=== PATIENT | female | born 1960 | race Caucasian/White ===

== ENCOUNTER → 2020-10-25 13:55 | Outpatient (CLI) | payer OTHER, SELFPAY ==
--- NOTE | ~2020-10-25 | XR_ITS ---
XR knee RT 3V DATE: 10/25/2020 14:10 INDICATION: Right knee pain TECHNIQUE: [place] and standing AP and lateral views COMPARISON: None FINDINGS: No fracture or dislocation or joint effusion. No periosteal reaction or bone destruction. N o radiopaque intra-articular loose body or chondrocalcinosis. Joint spaces are well preserved. IMPRESSION: Negative Reviewed, dictated and finalized at location A. IMPRESSION: Negative
== END ==
PROVIDERS: PCP Internal Medicine; Visit Provider Physician Assistant
DX: M25.561 Pain in right knee (principal)
CPT/HCPCS: 73562

== ENCOUNTER → 2021-07-01 15:09 | Outpatient (CLI) | payer OTHER, SELFPAY ==
--- NOTE | ~2021-07-01 | XR_ITS ---
XR elbow RT min 3V DATE: 07/01/2021 15:31 INDICATION: Right arm pain TECHNIQUE: 4 views COMPARISON: None FINDINGS: No fracture or dislocation or joint effusion. No periosteal reaction or bone destruction. IMPRESSION: No significant abnormality Reviewed, dictated and finalized at location A. IMPRESSION: No significant abnormality
--- NOTE | ~2021-07-01 | XR_ITS ---
XR shoulder RT min 2V 07/01/2021 15:31 INDICATION: Right shoulder pain PROCEDURE: 4 views right shoulder COMPARISON: 07/11/2007 FINDINGS: Fracture, dislocation or subluxation is not identified. The soft tissues appear within norm al limits. No foreign bodies are identified. IMPRESSION: 1: NO ACUTE BONE OR JOINT ABNORMALITY IDENTIFIED. Reviewed, dictated and finalized at location B.
== END ==
PROVIDERS: Visit Provider Internal Medicine
DX: M79.601 Pain in right arm (principal)
CPT/HCPCS: 73030; 73080

== ENCOUNTER 2021-09-17 10:16 | Emergency (ER) | payer OTHER, SELFPAY ==
--- NOTE | ~2021-09-17 | XR_ITS ---
XR chest 1V portable 09/17/2021 13:15 Indication: Cough. Covid positive. Procedure: AP portable chest Comparison: 05/11/2012 Findings: Heart size normal. Shallow inspiration with crowding of the pulmonary vasculature. No focal air space disease, pulmonary edema, pleural effusion or suspected pneumothorax. Impression: 1: No acute cardiopulmonary disease. Reviewed, dictated and finalized at location A. Impression: 1: No acute cardiopulmonary disease.
[2021-09-17 11:04] VITALS: BP 125/77; PULSE 80; RESP 16; TEMP 36.3; O2SAT 96
[2021-09-17 11:54] LABS: Add Urine Microscopic? YES; Appearance Urine Clear (Clear); Bilirubin Urine Negative (Negative); Blood Urine 1+ (Negative); Color Urine Yellow (Yellow); Glucose Urine UA Negative (Negative); Ketones Urine Negative (Negative); Leukocyte Esterase Ur Negative LEU/UL (Negative); Nitrate Urine Negative (Negative); Protein Urine Trace mg/dL (Negative); Urobilinogen Urine 0.2 mg/dL (<2.0)
[2021-09-17 11:59] LABS: Bacteria Urine Trace /hpf; Mucus Urine Rare /lpf; RBC Urine 0-2 /hpf (0-2); Squamous Epithelial Cell Urine Many /hpf (Few); WBC Urine 0-3 /hpf
[2021-09-17 12:24] LABS: Influenza A QL RT-PCR Negative (Negative); Influenza B QL RT-PCR Negative (Negative); SARS-CoV-2 RNA PCR Positive
--- NOTE | 2021-09-17 12:33 | ED.URI ---
HPI - URI/Sore Throat General Chief Complaint: Upper Respiratory Infection Stated Complaint: ? covid Time Seen by Provider: 09/17/21 11:27 History of Present Illness HPI Narrative: Patient is a 61-year-old female who presents the ED with report of flulike symptoms. Patient reports she was working outside all afternoon on Wednesday and began having sweats after coming inside. She states she just could not cool down and thought she may have had heat exhaustion. Since then, she has developed headache, intermittent fevers (up to 101F at home), congestion, cough occasionally productive, nausea, dizziness. She has been taking Tylenol and Naproxen at home for her fevers and pain. She took an at home COVID test which was positive, however she did not believe this as she thought she had heat exhaustion. She reports she had difficulty sleeping last night due to the cough which prompted her to come to the ED today. She last took Tylenol very early this morning and naproxen around 10 AM. She reported having difficulty urinating yesterday, but denied any difficulty today. No dysuria or hematuria. Patient denies any chest pain, difficulty breathing, vomiting, abdominal pain, diarrhea, sore throat, vision changes, myalgias. Patient is vaccinated for COVID and flu. Related Data Home Medications Medication Instructions Recorded Confirmed cetirizine 5 mg tablet 5 mg PO DAILY PRN 01/30/20 07/01/21 estradiol 0.5 mg tablet 0.5 mg PO DAILY 01/30/20 07/01/21 gabapentin 300 mg capsule 900 mg PO TID 01/30/20 07/01/21 aspirin 81 mg tablet,delayed 81 mg PO .qod 07/01/21 07/01/21 release (Adult Low Dose Aspirin) Allergies Allergy/AdvReac Type Severity Reaction Status Date / Time bacitracin Allergy Unknown Other Verified 09/17/21 11:08 erythromycin base Allergy Unknown Rash Verified 09/17/21 11:08 neomycin Allergy Unknown Rash Verified 09/17/21 11:08 Penicillins Allergy Unknown Rash Verified 09/17/21 11:08 polymyxin B Allergy Unknown Rash Verified 09/17/21 11:08 Review of Systems Review of Systems: CONSTITUTIONAL: Reports fever, chills, and sweats. EYES: Denies visual changes. ENT: Reports congestion. Denies sore throat. CARDIOVASCULAR: Denies chest pain. RESPIRATORY: Reports cough. Denies dyspnea. GASTROINTESTINAL: Reports nausea. Denies abdominal pain, vomiting, or diarrhea. GENITOURINARY: Reports difficulty urinating. Denies dysuria or hematuria. MUSCULOSKELETAL: Denies myalgia. NEUROLOGIC: Reports headache, dizziness. Denies numbness, or weakness. All systems reviewed & are unremarkable except as noted in HPI and below PMFSH Past Medical History Medical History (Updated 09/17/21 @ 14:41 by Veronica Wyatt PA-C) Depression Essential (primary) hypertension Gastro-esophageal reflux disease without esophagitis Hypothyroidism Polyneuropathy, unspecified Pure hypercholesterolemia Spinal stenosis, cervical region Surgical History Surgical History (Updated 09/17/21 @ 12:47 by Veronica Wyatt PA-C) History of History of cervical spinal surgery Family History Family History Father Family history of lung cancer Patient's father is in good health Patient's father is Mother Patient's mother is Social History Social History Smoking status: Never smoker Second hand tobacco smoke exposure: No Alcohol intake: current Exam Narrative: GENERAL: Well appearing, well-nourished, non-toxic, in no acute distress. HEAD: Normocephalic, atraumatic. NECK: Supple. No adenopathy, no masses. RESPIRATORY: Airway patent, respirations nonlabored. Clear to auscultation bilaterally, no rales, rhonchi, wheezing. CARDIOVASCULAR: Regular rate and rhythm without murmurs, rubs, or gallops. ABDOMINAL: Soft, nontender, nondistended, no hepatosplenomegaly. Normoactive BS. MUSCULOSKELETAL: Moves all
[2021-09-17] MEDS: ONDANSETRON INJ 4 MG/2 ML VIAL IV PUSH (12:51)
[2021-09-17] MEDS: SODIUM CHLORIDE 0.9% IV 1,000 ML 999 ML IV CONT (12:51)
[2021-09-17 13:05] LABS: Basophils Percent Auto 0.6 % (0.2-1.2); Eosinophils Percent Auto 0.6 % (0-4.4); Hematocrit 38.7 % (37.0-47.0); Hemoglobin 12.5 g/dL (12.0-15.0); Immature Granulocyte Absolute 0.02 K/mm3 (0.00-0.031); Immature Granulocyte Percent A 0.6 % (0-0.5); Immature Platelet Fraction Pct 7.9 % (0.9-11.2); Lymphocytes Absolute Auto 0.77 K/mm3 (0.9-3.2); Lymphocytes Percent Auto 21.4 % (18.3-44.2); Mean Corpuscular HGB Conc 32.3 g/dl (32-36); Mean Corpuscular Hemoglobin 29.2 pg (26-34); Mean Corpuscular Volume 90.4 fl (80-100); Mean Platelet Volume 11.4 fl (7.4-10.4); Monocytes Absolute Auto 0.6 K/mm3 (0.1-0.6); Monocytes Percent Auto 16.2 % (2.6-8.5); Neutrophils Absolute Auto 2.2 K/mm3 (1.3-6.7); Neutrophils Percent Auto 60.6 % (45.5-73.1); Platelet Count Result 125 k/mm3 (150-375); Red Blood Count 4.28 M/mm3 (4.2-5.4); Red Cell Distribution Width 13.8 % (11.5-14.5); White Blood Count 3.6 K/mm3 (4.5-10.0)
[2021-09-17 14:29] LABS: Alanine Aminotransferase 17 U/L (6-35); Albumin Level 4.1 g/dL (3.5-5.1); Alkaline Phosphatase 98 U/L (38-126); Anion Gap 6 mmol/L (8-16); Aspartate Amino Transferase 31 U/L (14-36); Bilirubin,Total 0.4 mg/dL (0.2-1.3); Blood Urea Nitrogen 10 mg/dL (7-17); Calcium 8.1 mg/dL (8.4-10.2); Carbon Dioxide 26 mmol/L (22-30); Chloride 108 mmol/L (98-107); Estimated CRCL calculation 66 ml/min; Estimated Glomerular Filt Rate > 60; Glucose 94 mg/dL (65-110); Sodium 140 mmol/L (137-145)
== END 2021-09-17 15:01 | disposition home or self-care (01) ==
PROVIDERS: Physician Assistant; Emergency Provider Emergency Medicine; PCP Internal Medicine
DX: U07.1 COVID-19 (principal); I10 Essential (primary) hypertension; K21.9 Gastro-esophageal reflux disease without esophagitis; E03.9 Hypothyroidism, unspecified; G62.9 Polyneuropathy, unspecified; E78.00 Pure hypercholesterolemia, unspecified; F32.A Depression, unspecified
CPT/HCPCS: 36415; 71045; 80053; 81001; 85025; 85055; 87086; 87088; 87502; 96361; 96365; 96375; 99284; C9803; J0131; J2405; J7030; U0003; U0005

== ENCOUNTER 2021-10-28 18:34 | Emergency (ER) | payer OTHER, SELFPAY ==
--- NOTE | ~2021-10-28 | CT_ITS ---
EXAMINATION: CT abdomen pelvis w con DATE: 10/28/2021 21:30 INDICATION: Right upper quadrant pain. Nausea. History of ulcers. TECHNIQUE: Computed tomography (CT) of the abdomen and pelvis was performed without intravenous contr ast. The dose-length product was 1122.45 mGy-cm. Automated exposure control and iterative reconstruct ion technique were employed. COMPARISON: None. FINDINGS: Heart size is normal. No significant pleural or pericardial effusion. Calcified granuloma l eft lower lobe. There is dependent atelectasis. The liver, spleen, pancreas, adrenal glands and kidne ys are unremarkable. Gallbladder wall appears mildly prominent with possible subtle pericholecystic f luid. No definite gallstones identified. Nonobstructive bowel gas pattern. Normal appendix. Bladder i s unremarkable. No abnormal pelvic masses or fluid collections. Colonic diverticulosis without eviden ce for diverticulitis. Small fat-containing umbilical hernia. There is atherosclerosis of the aorta w ithout aneurysm. No lymphadenopathy. Mild lumbar spondylosis. IMPRESSION: 1. Mild gallbladder wall thickening with possible pericholecystic fluid. Consider cholecystitis in th e appropriate clinical setting. Correlate clinically. Reviewed, dictated and finalized at location A. IMPRESSION: 1. Mild gallbladder wall thickening with possible pericholecystic fluid. Consid er cholecystitis in the appropriate clinical setting. Correlate clinically.
[2021-10-28 18:50] VITALS: BP 133/65; PULSE 71; RESP 16; TEMP 36.6; O2SAT 99
[2021-10-28 20:19] VITALS: BP 132/57; PULSE 64; RESP 16; O2SAT 99
--- NOTE | 2021-10-28 20:25 | ED.ABDPAIN ---
HPI - Abdominal Pain General Chief Complaint: Abdominal Pain Stated Complaint: abd pain Time Seen by Provider: 10/28/21 20:16 Source: patient Mode of arrival: ambulatory Limitations: no limitations History of Present Illness HPI narrative: This is a 61 year old female who presents for evaluation of right upper abdominal pain starting yesterday. She reports she had pain for several hours last night. She was able to get pain to resolve late last night with naproxen. She reports her pain returned to day after eating. Her pain has gradually worsened. She describes her pain has cramping with nausea. She states she had similar pain several months ago after eating tacos but she did not seek medical treatment. She took omeprazole twice today and 5 tums without relief. She rates her pain as 8/10. MD elicited complaint: abdominal pain Location: RUQ Severity: severe Quality: cramping Radiation: none Migration to: no migration Exacerbating factors: eating Associated symptoms: nausea Treatments prior to arrival: NSAIDs and antacids Related Data Home Medications Medication Instructions Recorded Confirmed cetirizine 5 mg tablet 5 mg PO DAILY PRN 01/30/20 07/01/21 estradiol 0.5 mg tablet 0.5 mg PO DAILY 01/30/20 07/01/21 gabapentin 300 mg capsule 900 mg PO TID 01/30/20 07/01/21 aspirin 81 mg tablet,delayed 81 mg PO .qod 07/01/21 07/01/21 release (Adult Low Dose Aspirin) Allergies Allergy/AdvReac Type Severity Reaction Status Date / Time bacitracin Allergy Unknown Other Verified 09/17/21 11:08 erythromycin base Allergy Unknown Rash Verified 09/17/21 11:08 neomycin Allergy Unknown Rash Verified 09/17/21 11:08 Penicillins Allergy Unknown Rash Verified 09/17/21 11:08 polymyxin B Allergy Unknown Rash Verified 09/17/21 11:08 Review of Systems Review of Systems: All systems reviewed & are unremarkable except as noted in HPI and below Constitutional: Constitutional: Denies weakness Cardiovascular: Cardiovascular: Denies syncope, Denies rapid heart rate, Denies irregular heart rhythm, Denies leg edema and Denies dyspnea Respiratory: Respiratory: Denies chest congestion, Denies hemoptysis, Denies excessive phlegm production and Denies dyspnea Gastrointestinal: Gastrointestinal: Denies hematochezia, Denies diarrhea, Reports nausea and Denies vomiting Genitourinary: Genitourinary: Denies hematuria and Denies dysuria Musculoskeletal: Musculoskeletal: Denies joint swelling, Denies loss of height and Denies muscle weakness Neurologic: Denies syncope, Denies focal weakness and Denies weakness PMFSH Past Medical History Medical History (Updated 10/28/21 @ 23:23 by Aylin Steel MD) Depression Essential (primary) hypertension Gastro-esophageal reflux disease without esophagitis Hypothyroidism Polyneuropathy, unspecified Pure hypercholesterolemia Spinal stenosis, cervical region Surgical History Surgical History (Updated 09/17/21 @ 12:47 by Veronica Wyatt PA-C) History of History of cervical spinal surgery Family History Family History Father Family history of lung cancer Patient's father is in good health Patient's father is Mother Patient's mother is Social History Social History Smoking status: Never smoker Second hand tobacco smoke exposure: No Alcohol intake: current Exam Narrative: GENERAL: Well-appearing, well-nourished, and in no acute distress. HEAD: Normocephalic, atraumatic EYES: PERRLA and EOMI, conjunctiva clear without discharge THROAT:Mucous membranes moist, Oropharynx normal without erythema, exudate, peritonsillar swelling or fluctuance NECK: Supple, without lymphadenopathy or mass RESPIRATORY: No respiratory distress, Airway patent, Respirations non-labored, Clear to auscultation without rales, rhonchi or wheeze HE
[2021-10-28] MEDS: SODIUM CHLORIDE 0.9% IV 1,000 ML 999 ML IV CONT (20:39)
[2021-10-28] MEDS: KETOROLAC 30 MG/ML VIAL (*BKC) IV PUSH (20:41)
[2021-10-28] MEDS: ONDANSETRON INJ 4 MG/2 ML VIAL IV PUSH (20:41)
[2021-10-28 20:57] LABS: Alanine Aminotransferase 13 U/L (6-35); Albumin Level 4.6 g/dL (3.5-5.1); Alkaline Phosphatase 97 U/L (38-126); Anion Gap 6 mmol/L (8-16); Aspartate Amino Transferase 25 U/L (14-36); Bilirubin,Total 0.5 mg/dL (0.2-1.3); Blood Urea Nitrogen 15 mg/dL (7-17); Carbon Dioxide 28 mmol/L (22-30); Chloride 103 mmol/L (98-107); Estimated CRCL calculation 65 ml/min; Estimated Glomerular Filt Rate > 60; Glucose 103 mg/dL (65-110); Lipase 156 U/L (23-300); Potassium 3.9 mmol/L (3.4-5.0); Sodium 137 mmol/L (137-145)
[2021-10-28 21:09] LABS: Basophils Percent Auto 0.4 % (0.2-1.2); Eosinophils Absolute Auto 0.1 K/mm3 (0-0.3); Eosinophils Percent Auto 1.9 % (0-4.4); Hematocrit 35.3 % (37.0-47.0); Hemoglobin 11.6 g/dL (12.0-15.0); Immature Granulocyte Absolute 0.03 K/mm3 (0.00-0.031); Immature Granulocyte Percent A 0.4 % (0-0.5); Lymphocytes Absolute Auto 1.69 K/mm3 (0.9-3.2); Lymphocytes Percent Auto 24.3 % (18.3-44.2); Mean Corpuscular HGB Conc 32.9 g/dl (32-36); Mean Corpuscular Hemoglobin 29.1 pg (26-34); Mean Corpuscular Volume 88.5 fl (80-100); Mean Platelet Volume 11.3 fl (7.4-10.4); Monocytes Absolute Auto 0.5 K/mm3 (0.1-0.6); Monocytes Percent Auto 7.3 % (2.6-8.5); Neutrophils Absolute Auto 4.6 K/mm3 (1.3-6.7); Neutrophils Percent Auto 65.7 % (45.5-73.1); Platelet Count Result 156 k/mm3 (150-375); Red Blood Count 3.99 M/mm3 (4.2-5.4); Red Cell Distribution Width 13.4 % (11.5-14.5)
--- NOTE | 2021-10-28 21:30 | PC.NURSE ---
Asked the patient to give a urine sample. She said she will try later.
[2021-10-28 22:23] LABS: Appearance Urine Clear (Clear); Bilirubin Urine Negative (Negative); Blood Urine 1+ (Negative); Color Urine Yellow (Yellow); Glucose Urine UA Negative (Negative); Ketones Urine Negative (Negative); Leukocyte Esterase Ur Negative LEU/UL (Negative); Nitrate Urine Negative (Negative); Protein Urine Negative (Negative); Specific Grav Ur <= 1.005 (1.001-1.035); Urobilinogen Urine 0.2 mg/dL (<2.0); pH Urine 5.5 (5.0-9.0)
[2021-10-28 22:29] LABS: Add Urine Microscopic? YES; Mucus Urine Rare /lpf; RBC Urine 0-2 /hpf (0-2); Squamous Epithelial Cell Urine Few /hpf (Few); WBC Urine 0-3 /hpf
[2021-10-28 23:43] VITALS: BP 133/66; PULSE 60; RESP 18; O2SAT 99
[2021-10-28] MEDS: levoFLOXacin 500 MG TABLET PO (23:43)
== END 2021-10-28 23:45 | disposition home or self-care (01) ==
PROVIDERS: Emergency Medicine; Emergency Provider General Practice; PCP Internal Medicine
DX: K81.0 Acute cholecystitis (principal); I10 Essential (primary) hypertension; K21.9 Gastro-esophageal reflux disease without esophagitis; E03.9 Hypothyroidism, unspecified; E78.00 Pure hypercholesterolemia, unspecified; G62.9 Polyneuropathy, unspecified; F32.A Depression, unspecified; Z79.82 Long term (current) use of aspirin
CPT/HCPCS: 36415; 74177; 80053; 81001; 83690; 85025; 96361; 96374; 96375; 99284; A9270; J1885; J2405; J7030; Q9967

== ENCOUNTER 2021-10-29 07:01 | Outpatient (CLI) | payer OTHER, SELFPAY ==
--- NOTE | ~2021-10-29 | US_ITS ---
EXAMINATION: US right upper quadrant DATE: 10/29/2021 07:42 INDICATION: Acute cholecystitis. TECHNIQUE: Multiple grayscale and Doppler ultrasound images of the abdomen were obtained. COMPARISON: CT abdomen and pelvis 10/28/2021 FINDINGS: The visualized portions of the head and body of the pancreas are normal. The liver is german l without focal lesion. There is normal flow in main portal vein. The gallbladder is normal in size. No gallstones or gallbladder wall thickening. There was no sonographic Martino sign. The common duct i s normal and measures 6 mm. IMPRESSION: 1. Normal right upper quadrant ultrasound. Reviewed, dictated and finalized at location A.
== END 2021-10-29 07:02 | disposition home or self-care (01) ==
PROVIDERS: PCP Internal Medicine; Visit Provider General Practice
DX: K81.0 Acute cholecystitis (principal); R10.11 Right upper quadrant pain
CPT/HCPCS: 76705

== ENCOUNTER 2021-10-30 03:50 | Observation (INO) | payer OTHER, SELFPAY ==
[2021-10-30] VITALS (8 sets, daily range): BP systolic 105–149; BP diastolic 52–72; PULSE 54–65; RESP 14–18; TEMP 36.5–36.9; O2SAT 96–100; BMI 31.4
--- NOTE | ~2021-10-30 | NM_ITS ---
EXAMINATION: NM hepatobiliary w pharm DATE: 10/30/2021 15:15 INDICATION: Right upper quadrant abdominal pain COMPARISON: None. TECHNIQUE: 4.9 mCi Tc-99m mebrofenin (Choletec) was administered intravenously. Scintigraphic images of the abdomen were obtained for one hour. 1 mg morphine was administered by slow intravenous infusi on, and imaging was continued for 30 minutes. FINDINGS: There is normal clearance of radiotracer from the blood pool. There is homogeneous tracer uptake by t he liver. Activity progresses to the common bile duct by 35 minutes and into the bowel by 45 minutes . There is progressive passage of contrast into the bowels in the 30 minutes following morphine admin istration with no evident gallbladder activity which could be consistent with acute cholecystitis. IMPRESSION: 1. No nodule observed activity within the gallbladder over 90 minutes of imaging including 30 minute s following morphine administration which would be consistent with acute cholecystitis. Reviewed, dictated and finalized at location B. IMPRESSION: 1. No nodule observed activity within the gallbladder over 90 minutes of imagi ng including 30 minutes following morphine administration which would be consis tent with acute cholecystitis.
[2021-10-30 04:36] LABS: Basophils Absolute Auto 0.1 K/mm3 (0.0-0.1); Eosinophils Absolute Auto 0.1 K/mm3 (0-0.3); Eosinophils Percent Auto 1.8 % (0-4.4); Hematocrit 37.3 % (37.0-47.0); Hemoglobin 12.1 g/dL (12.0-15.0); Immature Granulocyte Absolute 0.02 K/mm3 (0.00-0.031); Immature Granulocyte Percent A 0.3 % (0-0.5); Lymphocytes Absolute Auto 1.62 K/mm3 (0.9-3.2); Lymphocytes Percent Auto 26.5 % (18.3-44.2); Mean Corpuscular HGB Conc 32.4 g/dl (32-36); Mean Corpuscular Hemoglobin 29.2 pg (26-34); Mean Corpuscular Volume 90.1 fl (80-100); Mean Platelet Volume 11.1 fl (7.4-10.4); Monocytes Absolute Auto 0.5 K/mm3 (0.1-0.6); Monocytes Percent Auto 7.5 % (2.6-8.5); Neutrophils Absolute Auto 3.9 K/mm3 (1.3-6.7); Neutrophils Percent Auto 62.9 % (45.5-73.1); Platelet Count Result 165 k/mm3 (150-375); Red Blood Count 4.14 M/mm3 (4.2-5.4); Red Cell Distribution Width 13.6 % (11.5-14.5); White Blood Count 6.1 K/mm3 (4.5-10.0)
[2021-10-30 04:47] LABS: Alanine Aminotransferase 13 U/L (6-35); Albumin Level 4.6 g/dL (3.5-5.1); Alkaline Phosphatase 98 U/L (38-126); Anion Gap 5 mmol/L (8-16); Aspartate Amino Transferase 22 U/L (14-36); Bilirubin,Total 0.5 mg/dL (0.2-1.3); Blood Urea Nitrogen 13 mg/dL (7-17); Carbon Dioxide 31 mmol/L (22-30); Chloride 103 mmol/L (98-107); Estimated CRCL calculation 58 ml/min; Estimated Glomerular Filt Rate > 60; Glucose 114 mg/dL (65-110); Lipase 98 U/L (23-300); Sodium 139 mmol/L (137-145)
[2021-10-30] MEDS: ONDANSETRON INJ 4 MG/2 ML VIAL IV PUSH (05:15)
[2021-10-30] MEDS: MORPHINE SULFATE (*CRX) 4 MG/ML INJ IV PUSH (05:15)
--- NOTE | 2021-10-30 05:49 | ED.GENADULT ---
HPI - General Adult General Chief complaint: Abdominal Pain Stated complaint: ABD Pain Time Seen by Provider: 10/30/21 04:09 History of Present Illness HPI narrative: Patient is a 61-year-old female who presents ER with right upper quadrant abdominal pain. 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 Initially she had some pain around 1:00 that improved with the home pain medication however it did not improved after the later evening discomfort. Its persisted through the night and increased in the early hours this morning. No fevers or chills or sweats. Previous CT scan showed gallbladder wall thickening and possible pericholecystic fluid. Was started on antibiotics and seen in the ER 2 days ago. She did have an outpatient ultrasound performed yesterday which was read as normal. Related Data Home Medications Medication Instructions Recorded Confirmed cetirizine 5 mg tablet 5 mg PO DAILY PRN 01/30/20 07/01/21 estradiol 0.5 mg tablet 0.5 mg PO DAILY 01/30/20 07/01/21 gabapentin 300 mg capsule 900 mg PO TID 01/30/20 07/01/21 aspirin 81 mg tablet,delayed 81 mg PO .qod 07/01/21 07/01/21 release (Adult Low Dose Aspirin) Allergies Allergy/AdvReac Type Severity Reaction Status Date / Time bacitracin Allergy Unknown Other Verified 10/30/21 03:57 erythromycin base Allergy Unknown Rash Verified 10/30/21 03:57 neomycin Allergy Unknown Rash Verified 10/30/21 03:57 Penicillins Allergy Unknown Rash Verified 10/30/21 03:57 polymyxin B Allergy Unknown Rash Verified 10/30/21 03:57 adhesive tape AdvReac Rash Verified 10/30/21 03:58 Review of Systems Review of Systems: All systems reviewed & are unremarkable except as noted in HPI and below Constitutional: Constitutional: Denies chills, Denies fatigue and Denies fever(s) ENT: Denies nasal congestion and Denies sore throat Cardiovascular: Cardiovascular: Denies chest pain, Denies rapid heart rate and Denies radiating jaw, neck or arm pain Respiratory: Respiratory: Denies cough and Denies dyspnea Gastrointestinal: Gastrointestinal: Reports abdominal pain, Denies diarrhea, Reports nausea and Denies vomiting Genitourinary: Genitourinary: Denies nocturia and Denies dysuria PMF Past Medical History Medical History (Updated 10/30/21 @ 06:34 by Reed Soto MD) Depression Essential (primary) hypertension Gastro-esophageal reflux disease without esophagitis Hypothyroidism Polyneuropathy, unspecified Pure hypercholesterolemia Spinal stenosis, cervical region Surgical History Surgical History (Updated 09/17/21 @ 12:47 by Veronica Wyatt PA-C) History of History of cervical spinal surgery Family History Family History Father Family history of lung cancer Patient's father is in good health Patient's father is Mother Patient's mother is Social History Social History Smoking status: Never smoker Second hand tobacco smoke exposure: No Alcohol intake: current Exam Narrative: GENERAL: Well-appearing, well-nourished, and in no acute distress. HEAD: Normocephalic, atraumatic. NECK: Supple. CHEST: Clear to auscultation. No respiratory distress. HEART: Regular rate and rhythm. Normal peripheral pulses. ABDOMEN: Soft, tender palpation epigastrium and right upper quadrant without guarding nondistended, normal active bowel sounds. EXTREMITIES: Normal range of motion. No edema. SKIN: Warm, dry, no rash. NEURO: Alert and oriented x3. PSYCH: Normal mood and affect. Course Course Emergency Course: Patient still with some discomfort despite morphine. Admit for observation for HIDA scan. Hospitalist contacted. Vital Signs Vital signs: Vital Signs Temperature 97.8 F 10/30
[2021-10-30 07:26] LABS: SARS-CoV-2 RNA PCR Negative
--- NOTE | 2021-10-30 11:33 | PM.IMHP ---
H&P: HPI History of Present Illness Date/Time: 10/30/21 11:33 Chief Complaint: Patient is a 61-year-old female who presents ER with right upper quadrant abdominal pain.? 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 Initially she had some pain around 1:00 that improved with the home pain medication however it did not improved after the later evening discomfort.? Its persisted through the night and increased in the early hours this morning.? No fevers or chills or sweats.? Previous CT scan showed gallbladder wall thickening and possible pericholecystic fluid. ? Was started on antibiotics and seen in the ER 2 days ago.? She did have an outpatient ultrasound performed yesterday which was read as normal. Review of Systems Review of Systems: 10 point ROS negative except as stated in HPI / Subjective PMFSH Past Medical History Medical History Depression Essential (primary) hypertension Gastro-esophageal reflux disease without esophagitis Hypothyroidism Polyneuropathy, unspecified Pure hypercholesterolemia Spinal stenosis, cervical region Surgical History Surgical History History of History of cervical spinal surgery Family History Family History Father Family history of lung cancer Patient's father is in good health Patient's father is Mother Patient's mother is Social History Social History Smoking status: Never smoker Second hand tobacco smoke exposure: No Alcohol intake: current Alcohol use details: occassional use, holidays. Substance use: never Substance use type: does not use Living arrangements: with family Spiritual care concerns: No Meds Home Medications and Allergies Home Medications Medication Instructions Recorded Confirmed Type cetirizine 5 mg tablet 5 mg PO DAILY PRN 01/30/20 07/01/21 History estradiol 0.5 mg tablet 0.5 mg PO DAILY 01/30/20 07/01/21 History gabapentin 300 mg capsule 900 mg PO TID 01/30/20 07/01/21 History omeprazole 20 mg capsule,delayed 20 mg PO DAILY #90 caps 01/27/22 03/15/22 Rx release atenolol 25 mg tablet 12.5 mg PO DAILY #45 tabs 06/26/21 07/01/21 Rx atorvastatin 20 mg tablet 20 mg PO DAILY #90 tabs 09/06/21 Rx levothyroxine 50 mcg tablet 50 mcg PO DAILY #90 tabs 09/10/21 Rx hydrocodone 5 mg-acetaminophen 325 1 tablet PO Q6H PRN pain #7 tabs 10/28/21 Rx mg tablet levofloxacin 500 mg tablet 500 mg PO DAILY 5 days #5 tabs 10/28/21 Rx omeprazole 40 mg capsule,delayed 40 mg PO DAILY #14 caps 10/28/21 Rx release Allergies Allergy/AdvReac Type Severity Reaction Status Date / Time bacitracin Allergy Unknown Other Verified 10/30/21 03:57 erythromycin base Allergy Unknown Rash Verified 10/30/21 03:57 neomycin Allergy Unknown Rash Verified 10/30/21 03:57 Penicillins Allergy Unknown Rash Verified 10/30/21 03:57 polymyxin B Allergy Unknown Rash Verified 10/30/21 03:57 adhesive tape AdvReac Rash Verified 10/30/21 03:58 Vital Signs Vital Signs - 24 hr 10/30/21 03:53 10/30/21 06:15 10/30/21 06:48 Temperature 97.8 F Pulse Rate 61 63 61 Respiratory Rate 16 14 18 Blood Pressure 134/69 105/61 122/53 L Pulse Oximetry 100 98 96 Oxygen Delivery Room Air 10/30/21 08:24 10/30/21 08:50 Temperature 97.7 F Pulse Rate 60 54 L Respiratory Rate 16 17 Blood Pressure 113/60 124/52 L Pulse Oximetry 96 98 Oxygen Delivery Exam Narrative: General: alert and oriented Psych: appropriate mood nad affect Eyes: PERRLA Neck: Trachea midline, no new lesions Skin: no changes Lungs: CTA Cardiac: Normal S1,S2, no MGR ABD: soft, nd, nt, nbs Ext: no new le
[2021-10-30] MEDS: SODIUM CHLORIDE 0.9% IV 1,000 ML 125 ML IV CONT ×3 (11:49→23:02)
--- NOTE | 2021-10-30 13:41 | PM.CNGS ---
Assessment and Plan Assessment and plan (1) Abdominal pain, RUQ: Code(s): R10.11 - Right upper quadrant pain Status: Acute Assessment and Plan: Patient presented with RUQ and epigastric abdominal pain. CT showed mild gallbladder wall thickening, but no cholelithiasis. RUQ US was normal with no cholelithiasis. WBC and LFTs all normal. Unclear etiology for her pain. Agree with getting a HIDA scan to further evaluate the gallbladder as a source. Will await these results. Keep her NPO for now and continue IV fluids and analgesics. If her HIDA is unremarkable, then we would recommend to consult GI to further evaluate for other etiologies such as gastritis, ulcers, etc. (2) Essential (primary) hypertension: Code(s): I10 - Essential (primary) hypertension Status: Acute (3) Gastro-esophageal reflux disease without esophagitis: Code(s): K21.9 - Gastro-esophageal reflux disease without esophagitis Status: Acute Assessment and Plan: Currently on PO Protonix. May need to consult GI if HIDA is negative. (4) Obesity (BMI 30.0-34.9): Code(s): E66.9 - Obesity, unspecified Status: Acute Assessment and Plan: Encouraged low fat diet regardless of her HIDA results to help promote weight loss. (5) Hypothyroidism: Code(s): E03.9 - Hypothyroidism, unspecified Status: Acute Plan I have discussed the patient's case and plan of care with Dr. Tan. History of Present Illness Consult details Consult date: 10/30/21 Reason for consult: other (Right upper quadrant pain, possible cholecystitis) Requesting physician: Negro Kelley MD Narrative: This is a 61-year-old female with a history of hypertension, hyperlipidemia, GERD, ulcers, hypothyroidism, and neuropathy, who presented to the ER with complaints of right upper quadrant abdominal pain. She reports initially noticing issues after evening meals a few months ago. She would notice intermittent burning sternal and epigastric pain that she though was heartburn This typically occurred at night following a high fat dinner. Her symptoms were mild and she was treating this with Tums [id number]. She thought she needed to eat a better diet, so she tried eating less fatty foods. This seemed to help. Then, 2 days ago, she had eaten chowdhury, fried potatoes, and eggs for brunch and around 3:00 p.m. began to notice some epigastric/RUQ abdominal pain. She reports this was slightly different than what she had been experiencing the past few months because it was more in the right upper quadrant. She also felt bloated and gassy. Her symptoms persisted through the day and the pain became more severe, therefore she presented to the ER for evaluation that night. CT scan of the abdomen and pelvis showed mild gallbladder wall thickening with possible pericholecystic fluid. No cholelithiasis. Her lab were unremarkable with a normal white blood cell count, normal LFTs, and normal lipase. The ER physician initially wanted her to stay for evaluation, but the patient chose to go home and get an ultrasound in the morning as an outpatient. She endorses now that this was because she was supposed to baby-sit her granddaughter the following day and did not want to back out. She then returned for the right upper quadrant abdominal ultrasound yesterday morning, which was completely normal with no cholelithiasis. She then went out to eat breakfast with her brother and had a cheese and spinach omelet with hash browns at a restaurant. She additionally ate some applesauce a few hours later. She noticed that her abdominal pain began becoming more severe again around 3:00 p.m.. Again, she felt the pain was more in the right upper quadrant. She reports associated nausea, but no vomiting. No fever or chills. Due to the persistent pain, she returned to the ER for evaluation last night. Labs again were unremarkable with a normal white blood cell count a
[2021-10-30] MEDS: MORPHINE SULFATE (*CRX) 2 MG/ML INJ IV PUSH (14:43)
[2021-10-30] MEDS: GABAPENTIN 300 MG CAPSULE 900 MG PO ×2 (15:25→23:01)
--- NOTE | 2021-10-30 15:51 | PCCCNOTE ---
On 10/30/21, the student, Ayla Rodriguez, provided care and completed [facility] documentation on this patient. I have reviewed the student's documentation and agree with the findings.
[2021-10-30] MEDS: HYDROcodone/acetaminophen (*CRX) 5-325 MG TABLET 1 TAB PO (23:07)
[2021-10-31] VITALS (13 sets, daily range): BP systolic 121–149; BP diastolic 55–69; PULSE 53–576; RESP 12–18; TEMP 36.3–36.6; O2SAT 94–100
[2021-10-31] MEDS: HYDROcodone/acetaminophen (*CRX) 5-325 MG TABLET 1 TAB PO (04:22)
[2021-10-31 06:00] LABS: Basophils Percent Auto 0.9 % (0.2-1.2); Eosinophils Absolute Auto 0.1 K/mm3 (0-0.3); Hematocrit 38.4 % (37.0-47.0); Hemoglobin 12.2 g/dL (12.0-15.0); Immature Granulocyte Absolute 0.02 K/mm3 (0.00-0.031); Immature Granulocyte Percent A 0.5 % (0-0.5); Lymphocytes Absolute Auto 1.28 K/mm3 (0.9-3.2); Lymphocytes Percent Auto 29.5 % (18.3-44.2); Mean Corpuscular HGB Conc 31.8 g/dl (32-36); Mean Corpuscular Hemoglobin 29.1 pg (26-34); Mean Corpuscular Volume 91.6 fl (80-100); Mean Platelet Volume 11.4 fl (7.4-10.4); Monocytes Absolute Auto 0.4 K/mm3 (0.1-0.6); Monocytes Percent Auto 8.5 % (2.6-8.5); Neutrophils Absolute Auto 2.5 K/mm3 (1.3-6.7); Neutrophils Percent Auto 57.6 % (45.5-73.1); Platelet Count Result 149 k/mm3 (150-375); Red Blood Count 4.19 M/mm3 (4.2-5.4); Red Cell Distribution Width 13.4 % (11.5-14.5); White Blood Count 4.3 K/mm3 (4.5-10.0)
[2021-10-31 06:12] LABS: Alanine Aminotransferase 11 U/L (6-35); Alkaline Phosphatase 91 U/L (38-126); Anion Gap 2 mmol/L (8-16); Aspartate Amino Transferase 20 U/L (14-36); Bilirubin,Total 0.4 mg/dL (0.2-1.3); Blood Urea Nitrogen 10 mg/dL (7-17); Calcium 8.4 mg/dL (8.4-10.2); Carbon Dioxide 29 mmol/L (22-30); Chloride 108 mmol/L (98-107); Estimated CRCL calculation 58 ml/min; Estimated Glomerular Filt Rate > 60; Glucose 101 mg/dL (65-110); Sodium 139 mmol/L (137-145)
[2021-10-31] MEDS: GABAPENTIN 300 MG CAPSULE 900 MG PO ×2 (06:34→22:10)
[2021-10-31] MEDS: SODIUM CHLORIDE 0.9% IV 1,000 ML 125 ML IV CONT ×2 (06:34→22:20)
[2021-10-31] MEDS: LEVOTHYROXINE SODIUM 50 MCG TABLET PO (06:34)
[2021-10-31] MEDS: atenoloL 12.5 MG TABLET PO (08:14)
[2021-10-31] MEDS: estradioL 0.5 MG TABLET PO (08:14)
[2021-10-31] MEDS: PANTOPRAZOLE 40 MG TABLET PO (08:14)
[2021-10-31] MEDS: LORATADINE 10 MG TABLET PO (08:14)
--- NOTE | 2021-10-31 12:08 | PM.IMPN ---
Progress Note: A&P Assessment and Plan (1) Abdominal pain, RUQ: Code(s): R10.11 - Right upper quadrant pain Status: Acute Assessment and Plan: HIDA scan positive. Plan for cholecystectomy. (2) Spinal stenosis, cervical region: Code(s): M48.02 - Spinal stenosis, cervical region Status: Acute Assessment and Plan: Monitor (3) Pure hypercholesterolemia: Code(s): E78.00 - Pure hypercholesterolemia, unspecified Status: Acute Assessment and Plan: Monitor continue home meds when taking oral (4) Polyneuropathy, unspecified: Code(s): G62.9 - Polyneuropathy, unspecified Status: Acute Assessment and Plan: Monitor continue home meds when taking oral (5) Gastro-esophageal reflux disease without esophagitis: Code(s): K21.9 - Gastro-esophageal reflux disease without esophagitis Status: Acute (6) Essential (primary) hypertension: Code(s): I10 - Essential (primary) hypertension Status: Acute Assessment and Plan: Monitor and continue home meds when taking oral (7) Obesity (BMI 30.0-34.9): Code(s): E66.9 - Obesity, unspecified Status: Acute Subjective Date/time seen: 10/31/21 12:08 Doing okay. Still having some upper abdominal pain Exam Narrative: General: alert and oriented Psych: appropriate mood nad affect Eyes: PERRLA Neck: Trachea midline, no new lesions Skin: no changes Lungs: CTA Cardiac: Normal S1,S2, no MGR ABD: soft, nd, nt, nbs Ext: no new lesions, no cce Vasc: Pulses intact Objective Data Vital Signs Vital Signs: Vital Signs - 24 hr 10/30/21 15:19 10/30/21 16:48 10/30/21 21:44 Temperature 98.5 F 98.2 F Pulse Rate 65 62 Respiratory Rate 16 18 Blood Pressure 149/52 H 121/72 Pulse Oximetry 98 96 Oxygen Delivery Room Air 10/30/21 22:15 10/31/21 06:00 10/31/21 09:05 Temperature 97.3 F L Pulse Rate 65 Respiratory Rate 18 Blood Pressure 121/59 L Pulse Oximetry 96 94 96 Oxygen Delivery Room Air Room Air Intake/Output Intake/Output: Intake & Output 10/28/21 10/29/21 10/30/21 10/31/21 23:59 23:59 23:59 23:59 Intake Total 2850 1000 Balance 2850 1000 Meds/Results Medications: Active Medications Generic Name Dose Route Start Last Admin Trade Name Freq PRN Reason Stop Dose Admin Hydrocodone Bitart/Acetaminophen 1 tab 10/30/21 12:19 10/31/21 04:22 Hydrocodone/Acetaminophen (*Crx) 5-325 Mg Tablet PO 1 tab Q6H PRN Administration PAIN 4-6 Atenolol 12.5 mg 10/31/21 09:00 10/31/21 08:14 Atenolol 12.5 Mg Tablet PO 12.5 mg DAILY TREY Administration Atorvastatin Calcium 20 mg 10/31/21 09:00 10/31/21 08:15 Atorvastatin 20 Mg Tablet PO Not Given DAILY TREY Estradiol 0.5 mg 10/31/21 09:00 10/31/21 08:14 Estradiol 0.5 Mg Tablet PO 0.5 mg DAILY TREY Administration Gabapentin 900 mg 10/30/21 14:00 10/31/21 06:34 Gabapentin 300 Mg Capsule PO 900 mg Q8HR TREY Administration Sodium Chloride 1,000 mls @ 125 mls/hr 10/30/21 06:30 10/31/21 06:34 Normal Saline Iv IV CONT 125 mls/hr .Q8H TREY Administration Levofloxacin/Dextrose 750 mg in 150 mls @ 100 mls/hr 10/30/21 17:00 10/30/21 18:41 Levaquin 750 Mg/D5w 150 Ml IVPB Infused Q24H TREY Infusion Levothyroxine Sodium 50 mcg 10/31/21 06:30 10/31/21 06:34 Levothyroxine Sodium 50 Mcg Tablet PO 50 mcg DAILY@0630 TREY Administration Loratadine 10 mg 10/31/21 09:00 10/31/21 08:14 Loratadine 10 Mg Tablet PO 11/30/21 08:59 10 mg DAILY TREY Administration Morphine Sulfate 4 mg 10/30/21 06:29 Morphine Sulfate (*Crx) 4 Mg/Ml Inj IV PUSH Q2H PRN Pain Rated 7-10 Pantoprazole Sodium 40 mg 10/31/21 09:00 10/31/21 08:14 Pantoprazole 40 Mg Tablet PO 11/30/21 08:59 40 mg DAILY TREY Administration Prochlorperazine 25 mg 10/30/21 16:56 Prochlorperazine 25 Mg Supp.Rect RECTAL Q12H PRN Na
--- NOTE | 2021-10-31 15:40 | WPDANESEPPF ---
Anes - Initial Pre Proc Eval Procedure: Operation Date: 10/31/21 19:00 Proposed Procedures p Laparoscopic Cholecystectomy,Possible Intraoperative Cholangiograms,Possible Open - Puma Tan MD Date/Time: 10/31/21 15:40 Surgeon: Duran Vasquez MD Pre Op Diagnosis: ruq abdominal pain Patient Data Age: 61 Gender: F Height: 1.6 m Weight: 80.4 kg Last Vital Signs Temp 36.5 C 10/31/21 14:00 Pulse 57 L 10/31/21 14:00 Resp 18 10/31/21 14:00 BP 138/62 10/31/21 14:00 Pulse Ox 98 10/31/21 14:00 O2 Del Method Room Air 10/31/21 09:05 Allergies Allergy/AdvReac Type Severity Reaction Status Date / Time bacitracin Allergy Unknown Other Verified 10/30/21 03:57 erythromycin base Allergy Unknown Rash Verified 10/30/21 03:57 neomycin Allergy Unknown Rash Verified 10/30/21 03:57 Penicillins Allergy Unknown Rash Verified 10/30/21 03:57 polymyxin B Allergy Unknown Rash Verified 10/30/21 03:57 adhesive tape AdvReac Rash Verified 10/30/21 03:58 Home Medications Medication Instructions Recorded Confirmed Type cetirizine 5 mg tablet 5 mg PO DAILY 01/30/20 10/30/21 History estradiol 0.5 mg tablet 0.5 mg PO DAILY 01/30/20 10/30/21 History gabapentin 300 mg capsule 900 mg PO TID 01/30/20 10/30/21 History atenolol 25 mg tablet 12.5 mg PO DAILY #45 tabs 06/26/21 10/30/21 Rx atorvastatin 20 mg tablet 20 mg PO DAILY #90 tabs 09/06/21 10/30/21 Rx levothyroxine 50 mcg tablet 50 mcg PO DAILY #90 tabs 09/10/21 10/30/21 Rx hydrocodone 5 mg-acetaminophen 325 1 tablet PO Q6H PRN pain #7 tabs 10/28/21 10/30/21 Rx mg tablet levofloxacin 500 mg tablet 500 mg PO DAILY 5 days #5 tabs 10/28/21 10/30/21 Rx omeprazole 20 mg capsule,delayed 20 mg PO DAILY 10/30/21 10/30/21 History release Laboratory Tests 10/31/21 10/31/21 10/31/21 05:37 05:37 05:37 WBC 4.3 K/mm3 L K/mm3 (4.5-10.0) RBC 4.19 M/mm3 L M/mm3 (4.2-5.4) Hgb 12.2 g/dL g/dL (12.0-15.0) Hct 38.4 % % (37.0-47.0) MCV 91.6 fl fl (80-100) MCH 29.1 pg pg (26-34) MCHC 31.8 g/dl L g/dl (32-36) RDW 13.4 % % (11.5-14.5) Plt Count 149 k/mm3 L k/mm3 (150-375) MPV 11.4 fl H fl (7.4-10.4) Immature Gran % (Auto) 0.5 % % (0-0.5) Neut % (Auto) 57.6 % % (45.5-73.1) Lymph % (Auto) 29.5 % % (18.3-44.2) [place] % (Auto) 8.5 % % (2.6-8.5) Eos % (Auto) 3.0 % % (0-4.4) Baso % (Auto) 0.9 % % (0.2-1.2) Lymph # (Auto) 1.28 K/mm3 K/mm3 (0.9-3.2) [place] # (Auto) 0.4 K/mm3 K/mm3 (0.1-0.6) Eos # (Auto) 0.1 K/mm3 K/mm3 (0-0.3) Baso # (Auto) 0.0 K/mm3 K/mm3 (0.0-0.1) Abs Immat Gran (auto) 0.02 K/mm3 K/mm3 (0.00-0.031) Absolute Neuts (auto) 2.5 K/mm3 K/mm3 (1.3-6.7) Absolute Nucleated RBC 0.0 K/mm3 K/mm3 (0.0-0.012) Nucleated RBC % 0.0 % % (0.0-0.2) Sodium 139 mmol/L mmol/L (137-145) Potassium 4.0 mmol/L mmol/L (3.4-5.0) Chloride 108 mmol/L H mmol/L (98-107) Carbon Dioxide 29 mmol/L mmol/L (22-30) Anion Gap 2 mmol/L L mmol/L (8-16) BUN 10 mg/dL mg/dL (7-17) Creatinine 0.90 mg/dL mg/dL (0.7-1.0) Estim Creat Clear Calc 58 ml/min ml/min Estimated GFR > 60 (59 - ) Glucose 101 mg/dL mg/dL (65-110) Calcium 8.4 mg/dL mg/dL (8.4-10.2) Total Bilirubin 0.4 mg/dL mg/dL (0.2-1.3) AST 20 U/L U/L (14-36) ALT 11 U/L U/L (6-35) Alkaline Phosphatase 91 U/L U/L (38-126) Total Protein 7.0 g/dL g/dL (6.3-8.2) Albumin 4.0 g/dL g/dL (3.5-5.1) Blood Type O Positive Antibody Screen Negative Patient hx anesthesia problems: none Family hx anesthesia problems: none Results Review: All pre-operative r
--- NOTE | 2021-10-31 17:09 | ECG_ITS ---
Measurements Intervals [place] Rate: 53 P: 18 WA: 159 QRS: 23 QRSD: 93 T: 3 QT: 427 QTc: 404 Interpretive Statements SINUS BRADYCARDIA INCOMPLETE RIGHT BUNDLE BRANCH BLOCK BASELINE ARTIFACT- V6 BORDERLINE ECG Electronically Signed On 10-31-2021 18:31:16 CDT by Jaleel Crowe D.O.
--- NOTE | 2021-10-31 17:27 | WPDANESEPPF ---
Anes - Initial Pre Proc Eval Procedure: Operation Date: 10/31/21 19:00 Proposed Procedures p Laparoscopic Cholecystectomy,Possible Intraoperative Cholangiograms,Possible Open - Puma Tan MD Date/Time: 10/31/21 17:27 Surgeon: Duran Vasquez MD Pre Op Diagnosis: ruq abdominal pain Patient Data Age: 61 Gender: F Height: 1.6 m Weight: 80.4 kg Last Vital Signs Temp 36.6 C 10/31/21 16:30 Pulse 576 H 10/31/21 16:30 Resp 16 10/31/21 16:30 BP 136/65 10/31/21 16:30 Pulse Ox 97 10/31/21 16:30 O2 Del Method Room Air 10/31/21 16:30 Allergies Allergy/AdvReac Type Severity Reaction Status Date / Time bacitracin Allergy Unknown Other Verified 10/31/21 17:12 erythromycin base Allergy Unknown Rash Verified 10/31/21 17:12 neomycin Allergy Unknown Rash Verified 10/31/21 17:12 Penicillins Allergy Unknown Rash Verified 10/31/21 17:12 polymyxin B Allergy Unknown Rash Verified 10/31/21 17:12 adhesive tape AdvReac Rash Verified 10/31/21 17:12 Home Medications Medication Instructions Recorded Confirmed Type cetirizine 5 mg tablet 5 mg PO DAILY 01/30/20 10/30/21 History estradiol 0.5 mg tablet 0.5 mg PO DAILY 01/30/20 10/30/21 History gabapentin 300 mg capsule 900 mg PO TID 01/30/20 10/30/21 History atenolol 25 mg tablet 12.5 mg PO DAILY #45 tabs 06/26/21 10/30/21 Rx atorvastatin 20 mg tablet 20 mg PO DAILY #90 tabs 09/06/21 10/30/21 Rx levothyroxine 50 mcg tablet 50 mcg PO DAILY #90 tabs 09/10/21 10/30/21 Rx hydrocodone 5 mg-acetaminophen 325 1 tablet PO Q6H PRN pain #7 tabs 10/28/21 10/30/21 Rx mg tablet levofloxacin 500 mg tablet 500 mg PO DAILY 5 days #5 tabs 10/28/21 10/30/21 Rx omeprazole 20 mg capsule,delayed 20 mg PO DAILY 10/30/21 10/30/21 History release Laboratory Tests 10/31/21 10/31/21 10/31/21 05:37 05:37 05:37 WBC 4.3 K/mm3 L K/mm3 (4.5-10.0) RBC 4.19 M/mm3 L M/mm3 (4.2-5.4) Hgb 12.2 g/dL g/dL (12.0-15.0) Hct 38.4 % % (37.0-47.0) MCV 91.6 fl fl (80-100) MCH 29.1 pg pg (26-34) MCHC 31.8 g/dl L g/dl (32-36) RDW 13.4 % % (11.5-14.5) Plt Count 149 k/mm3 L k/mm3 (150-375) MPV 11.4 fl H fl (7.4-10.4) Immature Gran % (Auto) 0.5 % % (0-0.5) Neut % (Auto) 57.6 % % (45.5-73.1) Lymph % (Auto) 29.5 % % (18.3-44.2) [place] % (Auto) 8.5 % % (2.6-8.5) Eos % (Auto) 3.0 % % (0-4.4) Baso % (Auto) 0.9 % % (0.2-1.2) Lymph # (Auto) 1.28 K/mm3 K/mm3 (0.9-3.2) [place] # (Auto) 0.4 K/mm3 K/mm3 (0.1-0.6) Eos # (Auto) 0.1 K/mm3 K/mm3 (0-0.3) Baso # (Auto) 0.0 K/mm3 K/mm3 (0.0-0.1) Abs Immat Gran (auto) 0.02 K/mm3 K/mm3 (0.00-0.031) Absolute Neuts (auto) 2.5 K/mm3 K/mm3 (1.3-6.7) Absolute Nucleated RBC 0.0 K/mm3 K/mm3 (0.0-0.012) Nucleated RBC % 0.0 % % (0.0-0.2) Sodium 139 mmol/L mmol/L (137-145) Potassium 4.0 mmol/L mmol/L (3.4-5.0) Chloride 108 mmol/L H mmol/L (98-107) Carbon Dioxide 29 mmol/L mmol/L (22-30) Anion Gap 2 mmol/L L mmol/L (8-16) BUN 10 mg/dL mg/dL (7-17) Creatinine 0.90 mg/dL mg/dL (0.7-1.0) Estim Creat Clear Calc 58 ml/min ml/min Estimated GFR > 60 (59 - ) Glucose 101 mg/dL mg/dL (65-110) Calcium 8.4 mg/dL mg/dL (8.4-10.2) Total Bilirubin 0.4 mg/dL mg/dL (0.2-1.3) AST 20 U/L U/L (14-36) ALT 11 U/L U/L (6-35) Alkaline Phosphatase 91 U/L U/L (38-126) Total Protein 7.0 g/dL g/dL (6.3-8.2) Albumin 4.0 g/dL g/dL (3.5-5.1) Blood Type O Positive Antibody Screen Negative Patient hx anesthesia problems: none Family hx anesthesia problems: none Results Review: All pre-operative
--- NOTE | 2021-10-31 17:27 | WPDHPUPDATE1 ---
History and Physical Update Update Date/Time: 10/31/21 17:27 History and Physical has been reviewed, including an updated exam of the patient. There are changes in the patient's condition. The patient had a HIDA scan that showed no fill of the GB consistent with Acute Cholecystitis. See my addendum to her Consult from yesterday. Risks, benefits, and alternatives have been discussed and questions answered. Patient agrees to proceed with procedure. ANITA
[2021-10-31] MEDS: BUPIVACAINE/EPINEPHRINE 0.25% 50 ML VIAL 30 ML INFILTRATE (18:04)
[2021-10-31] MEDS: LACTATED RINGERS 1,000 ML 30 ML IV CONT ×2 (19:30)
[2021-10-31] MEDS: fentaNYL CITRATE INJ (*CRX) 100 MCG/2 ML VIAL 25 MCG IV PUSH ×6 (19:44→20:05)
--- NOTE | 2021-10-31 19:52 | W.PM.PROC2 ---
Procedure Note - Detailed Date of Procedure 10/31/21 Pre-op Diagnosis 1. acute cholecystitis by HIDA scan 2. ruq abdominal pain Post-op Diagnosis Other ( acute cholecystitis with cholelithiasis 2. small umbilical hernia) Procedure Performed 1. Laproscopic Cholecystectomy 2. Repair of small umbilical hernia Surgeon Puma Tan MD Cross Cut Saw Operator Enrrique ANDERSON[employer] tax accounting assistant Anesthesia General Indications Patient had an abnormal HIDA scan yesterday which is consistent with acute cholecystitis. Interestingly, no stones were seen on her ultrasound done several days ago. Patient's pain has continued however and is consistent with possible cholecystitis therefore we are planning to proceed with a laparoscopic cholecystectomy possible intraoperative cholangiogram and possible open cholecystectomy. (see H&P and addendum last night. ) Findings Gallbladder had significant adhesions on it from the omentum in and packed could barely be seen when we 1st entered the abdomen. There was definite edema around the triangle of [place] area. There appeared to be a single stone stuck at the neck of the gallbladder. The cystic duct was at least 2 cm long it appeared. It was thickened and I used a [address] to clip it x2. Also, found had entry was a small approximately 1 cm umbilical hernia. Description of Procedure Patient was seen preoperatively in the holding area and risks, benefits and alternatives confirmed. Patient was taken to the operating room and general anesthesia was induced. A time out was then preformed with the surgery team confirming patient and site of surgery. The abdomen was prepped and draped in the usual sterile fashion. Incision was made just below the umbilicus with an 11 blade knife. I placed 2 stay sutures of O- Vicryl on either side of the mid-line fascia beneath the umbilicus. During further dissection to try to enter the abdomen we identified a some preperitoneal fat coming up through a small 1 cm umbilical hernia defect. We actually entered the abdomen at this site and incised the fascia slightly more inferiorly so the 12 mm [place] would slide in. Therefore than I was able to slide in the [place] cannula through the fascial defect into the peritoneum. First under low flow and then under high flow the abdomen was insufflated with carbon dioxide never exceeding a pressure of 14. Three 5 mm trocars were then introduced under direct vision. The following trocars were introduced under direct vision: a 5 mm in the epigastrium and two 5 mm trocars along the right costal margin laterally in the subcostal area. There were significant omental adhesions to the underside of the gallbladder. These were taken down with blunt and sharp dissection using some Bovie cautery for hemostasis. We were able to dissect this completely away from the neck of the gallbladder. I then carefully used the L-shaped cautery and the [place] dissector to dissect out the triangle of [place]. I then was able to dissect out both the cystic duct and cystic artery and identify a window of safety. significant edema was noted in the triangle of [place] area. The gall bladder was grasped and the cystic duct and artery were dissected free and clipped with an 5 mm endo-clip supervisor of way. The cystic duct and artery were clipped with use of 2 clips on the patient's side 1 on the gallbladder side utilizing a 10 mm endoclip-supervisor of way. While dissecting cystic duct it appeared that there was a small stone lodged within the duct as best I could tell and I cry carefully tried to milk this back toward the gallbladder with the [place] dissector. The cystic duct was then transected. The cystic artery was also transected at this point. The gall bladder was removed using electrocautery and then removed from the abdomen using an endobag . Red to removal of the 12 mm epigastric port we carefully inspected for any signs of bleeding there was none. We irrigated and suctioned away all the fluid
[2021-10-31] MEDS: SENNA/DOCUSATE SODIUM TABLET 2 TAB PO (22:04)
[2021-11-01 02:14] VITALS: BP 129/79; PULSE 62; RESP 16; TEMP 36.4; O2SAT 97
[2021-11-01] MEDS: SODIUM CHLORIDE 0.9% IV 1,000 ML 125 ML IV CONT ×2 (03:02→10:58)
[2021-11-01 04:22] VITALS: BP 145/62; PULSE 87; RESP 16; TEMP 36.4; O2SAT 97
[2021-11-01] MEDS: MORPHINE SULFATE (*CRX) 2 MG/ML INJ IV PUSH (04:35)
[2021-11-01] MEDS: GABAPENTIN 300 MG CAPSULE 900 MG PO ×3 (05:45→21:28)
[2021-11-01] MEDS: LEVOTHYROXINE SODIUM 50 MCG TABLET PO (05:47)
[2021-11-01] MEDS: LORATADINE 10 MG TABLET PO (08:11)
[2021-11-01] MEDS: PANTOPRAZOLE 40 MG TABLET PO (08:11)
[2021-11-01] MEDS: estradioL 0.5 MG TABLET PO (08:11)
[2021-11-01] MEDS: ATORVASTATIN 20 MG TABLET PO (08:12)
[2021-11-01] MEDS: SENNA/DOCUSATE SODIUM TABLET 2 TAB PO (08:12)
[2021-11-01] MEDS: ENOXAPARIN 40 MG/0.4 ML SYRINGE SUB-Q (08:12)
[2021-11-01 09:10] LABS: Hematocrit 36.1 % (37.0-47.0); Hemoglobin 12.3 g/dL (12.0-15.0); Mean Corpuscular HGB Conc 34.1 g/dl (32-36); Mean Corpuscular Hemoglobin 29.6 pg (26-34); Mean Platelet Volume 11.1 fl (7.4-10.4); Platelet Count Result 175 k/mm3 (150-375); Red Blood Count 4.15 M/mm3 (4.2-5.4); Red Cell Distribution Width 13.2 % (11.5-14.5); White Blood Count 10.5 K/mm3 (4.5-10.0)
[2021-11-01 09:24] LABS: Alanine Aminotransferase 23 U/L (6-35); Albumin Level 3.9 g/dL (3.5-5.1); Alkaline Phosphatase 81 U/L (38-126); Anion Gap 7 mmol/L (8-16); Aspartate Amino Transferase 37 U/L (14-36); Bilirubin,Total 0.4 mg/dL (0.2-1.3); Blood Urea Nitrogen 8 mg/dL (7-17); Calcium 8.5 mg/dL (8.4-10.2); Carbon Dioxide 23 mmol/L (22-30); Chloride 106 mmol/L (98-107); Estimated CRCL calculation 65 ml/min; Estimated Glomerular Filt Rate > 60; Glucose 155 mg/dL (65-110); Potassium 3.8 mmol/L (3.4-5.0); Sodium 136 mmol/L (137-145)
--- NOTE | 2021-11-01 10:54 | PM.IMPN ---
Progress Note: A&P Assessment and Plan (1) Abdominal pain, RUQ: Code(s): R10.11 - Right upper quadrant pain Status: Acute Assessment and Plan: Status post cholecystectomy. Doing okay. Continue pain control. Advance diet as tolerated. Likely discharge tomorrow (2) Spinal stenosis, cervical region: Code(s): M48.02 - Spinal stenosis, cervical region Status: Acute Assessment and Plan: Monitor (3) Pure hypercholesterolemia: Code(s): E78.00 - Pure hypercholesterolemia, unspecified Status: Acute Assessment and Plan: Monitor continue home meds when taking oral (4) Polyneuropathy, unspecified: Code(s): G62.9 - Polyneuropathy, unspecified Status: Acute Assessment and Plan: Monitor continue home meds when taking oral (5) Gastro-esophageal reflux disease without esophagitis: Code(s): K21.9 - Gastro-esophageal reflux disease without esophagitis Status: Acute (6) Essential (primary) hypertension: Code(s): I10 - Essential (primary) hypertension Status: Acute Assessment and Plan: Monitor and continue home meds when taking oral (7) Obesity (BMI 30.0-34.9): Code(s): E66.9 - Obesity, unspecified Status: Acute Subjective Date/time seen: 11/01/21 10:54 Still having some mild abdominal pain. has not eaten full diet. Exam Narrative: General: alert and oriented Psych: appropriate mood nad affect Eyes: PERRLA Neck: Trachea midline, no new lesions Skin: no changes Lungs: CTA Cardiac: Normal S1,S2, no MGR ABD: soft, nd, nt, nbs Ext: no new lesions, no cce Vasc: Pulses intact Objective Data Vital Signs Vital Signs: Vital Signs - 24 hr 10/31/21 14:00 10/31/21 16:30 10/31/21 19:30 Temperature 97.7 F 97.8 F 97.3 F L Pulse Rate 57 L 576 H 60 Respiratory Rate 18 16 12 Blood Pressure 138/62 136/65 149/69 H Pulse Oximetry 98 97 100 Oxygen Delivery Room Air Simple Face Mask Oxygen Flow Rate 8 10/31/21 20:00 10/31/21 20:06 10/31/21 20:15 Temperature Pulse Rate 60 61 Respiratory Rate 14 16 Blood Pressure 139/63 121/55 L Pulse Oximetry 100 98 99 Oxygen Delivery Simple Face Mask Room Air Room Air Oxygen Flow Rate 8 10/31/21 19:45 10/31/21 20:28 10/31/21 20:44 Temperature 97.7 F Pulse Rate 53 L 53 L 65 Respiratory Rate 18 16 16 Blood Pressure 136/66 134/63 141/63 H Pulse Oximetry 100 100 100 Oxygen Delivery Simple Face Mask Room Air Oxygen Flow Rate 8 10/31/21 21:14 10/31/21 22:28 11/01/21 02:14 Temperature 97.7 F 97.6 F 97.6 F Pulse Rate 70 72 62 Respiratory Rate 16 16 16 Blood Pressure 142/64 H 136/65 129/79 Pulse Oximetry 98 98 97 Oxygen Delivery Oxygen Flow Rate 11/01/21 04:22 Temperature 97.5 F L Pulse Rate 87 Respiratory Rate 16 Blood Pressure 145/62 H Pulse Oximetry 97 Oxygen Delivery Oxygen Flow Rate Intake/Output Intake/Output: Intake & Output 10/29/21 10/30/21 10/31/21 11/01/21 23:59 23:59 23:59 23:59 Intake Total 2850 2150 1680 Output Total 1300 Balance 2850 2150 380 Meds/Results Medications: Active Medications Generic Name Dose Route Start Last Admin Trade Name Freq PRN Reason Stop Dose Admin Acetaminophen 500 mg 10/31/21 20:29 Acetaminophen 500 Mg Tablet PO Q6H PRN Mild Pain (1-3) or Fever Hydrocodone Bitart/Acetaminophen 1 tab 10/30/21 12:19 10/31/21 04:22 Hydrocodone/Acetaminophen (*Crx) 5-325 Mg Tablet PO 1 tab Q6H PRN Administration PAIN 4-6 Hydrocodone Bitart/Acetaminophen 1 tab 10/31/21 20:29 Hydrocodone/Acetaminophen (*Crx) 7.5-325 Mg Tablet PO Q4H PRN Pain Rated 7-10 Atenolol 12.5 mg 10/31/21 09:00 11/01/21 08:12 Atenolol 12.5 Mg Tablet PO Not Given DAILY TREY Atorvastatin Calcium 20 mg 10/31/21 09:00 11/01/21 08:12 Atorvastatin 20 Mg Tablet PO 20 mg DAILY TREY Administration Diphenhydramine HCl 25 mg 10/31/21 20:29 Diphenh
[2021-11-01] MEDS: HYDROcodone/acetaminophen (*CRX) 5-325 MG TABLET 1 TAB PO ×2 (10:57→17:07)
[2021-11-01 12:21] VITALS: BP 134/55; PULSE 80; RESP 16; TEMP 36.7; O2SAT 94
--- NOTE | 2021-11-01 15:39 | PM.PNGS ---
Progress Note: A&P Assessment and Plan (1) Acute cholecystitis: Code(s): K81.0 - Acute cholecystitis Status: Acute Assessment and Plan: this now peers to be the main reason for the patient's admission. Was discovered only by HIDA scan as ultrasound and CT did not show stones. It appeared at the time of surgery that she may have a single stone lodged at the cystic duct. Patient received a dose of Levaquin at the beginning of surgery so that is still effective. Will not order more antibiotics unless she begins having a fever or an elevated white count today the white count was normal. Will gradually increase her diet as tolerated. repeat labs in a.m. (2) Hyperlipidemia: Code(s): E78.5 - Hyperlipidemia, unspecified Status: Acute Assessment and Plan: Patient may want to stay on a low-fat diet after the 2 weeks I have requested she be on it to help handle this. (3) Esophageal reflux disease: Code(s): K21.9 - Gastro-esophageal reflux disease without esophagitis Status: Acute Assessment and Plan: Patient on a PPI. (4) Obesity (BMI 30.0-34.9): Code(s): E66.9 - Obesity, unspecified Status: Acute Assessment and Plan: Will encourage low-fat diet and healthy lifestyle changes. Subjective Subjective Date/Time Seen: 11/01/21 15:33 Post Op day: 1 ( Making slow improvement) Patient reports: feels better, still having pain ( somewhat afraid to move.), pain is less, tolerating liquids well, flatus, no bowel movement and afebrile Interval history: Patient is sitting up in bed drinking some liquids. She has not been doing great with her incentive spirometer. in the room and states she has not walked outside the room but has gotten up to the commode. I encouraged her to start getting up walking to the bathroom and walking the cortés. She has been somewhat hesitant. Surgical findings discussed with patient and . Review of Systems Review of Systems: All systems reviewed & are unremarkable except as noted in HPI and below Constitutional: Constitutional: Reports as per HPI, Denies chills and Denies fever(s) Cardiovascular: Cardiovascular: Denies chest pain and Denies dyspnea Respiratory: Respiratory: Reports no additional respiratory complaints and Denies dyspnea Gastrointestinal: Gastrointestinal: Reports as per HPI and Denies bloating Comments: Patient up to a full liquid diet for lunch and nurses have the capability of dancing her to a low-fat diet when she is ready. Musculoskeletal: Musculoskeletal: Reports no additional musculoskeletal complaints Neurologic: Denies memory loss Psychiatric: Psychiatric: Denies anxiety and Denies memory loss Exam Const: General: cooperative, comfortable, alert and awake Orientation/consciousness: patient oriented x3 HENMT: Head: normal to inspection Mouth: Yes moist mucous membranes Eyes: Sclera: sclerae normal Pupils: Equal, round and reactive pupils present Neck: Neck: normal visual inspection and no JVD Chest: Chest palpation & inspection: normal inspection of the chest Resp: Effort & Inspection: normal respiratory effort Auscultation: clear to auscultation bilaterally Cardio: Jugular venous distension: no JVD Rate: regular rate GI: Inspection: incision ( Clean and dry with surgical glue in place no surrounding erythema.) and no visible herniation GI Palp: Yes abdominal tenderness ( specially right upper quadrant), Yes Firmness to palpation present (GI) and No Guarding due to palpation present (GI) Auscultation: normal bowel sounds Rectal Exam: deferred Neuro: General: patient oriented x3 Cranial nerves: Yes Equal, round and reactive pupils present Objective Data Vital Signs Vital Signs: Vital Signs - 24 hr 10/31/21 16:30 10/31/21 19:30 10/31/21 20:00 Temperature 36.6 C 36.3 C L Pulse Rate 576 H 60 60 Respiratory Rate 16 12 14 Blood Pressure 136/65 149/69 H 1
[2021-11-01 16:46] VITALS: BP 120/53; PULSE 63; RESP 18; TEMP 36.7; O2SAT 98
[2021-11-01 20:19] VITALS: BP 138/65; PULSE 69; RESP 22; TEMP 36.8; O2SAT 95
[2021-11-01] MEDS: HYDROcodone/acetaminophen (*CRX) 7.5-325 MG TABLET 1 TAB PO (21:27)
[2021-11-02] MEDS: HYDROcodone/acetaminophen (*CRX) 7.5-325 MG TABLET 1 TAB PO (04:02)
[2021-11-02 05:29] LABS: Basophils Percent Auto 0.5 % (0.2-1.2); Eosinophils Absolute Auto 0.1 K/mm3 (0-0.3); Eosinophils Percent Auto 0.9 % (0-4.4); Hematocrit 36.5 % (37.0-47.0); Hemoglobin 11.7 g/dL (12.0-15.0); Immature Granulocyte Absolute 0.04 K/mm3 (0.00-0.031); Immature Granulocyte Percent A 0.5 % (0-0.5); Lymphocytes Absolute Auto 1.57 K/mm3 (0.9-3.2); Lymphocytes Percent Auto 20.7 % (18.3-44.2); Mean Corpuscular HGB Conc 32.1 g/dl (32-36); Mean Corpuscular Hemoglobin 29.5 pg (26-34); Mean Corpuscular Volume 92.2 fl (80-100); Mean Platelet Volume 11.5 fl (7.4-10.4); Monocytes Absolute Auto 0.5 K/mm3 (0.1-0.6); Monocytes Percent Auto 5.9 % (2.6-8.5); Neutrophils Absolute Auto 5.4 K/mm3 (1.3-6.7); Neutrophils Percent Auto 71.5 % (45.5-73.1); Platelet Count Result 144 k/mm3 (150-375); Red Blood Count 3.96 M/mm3 (4.2-5.4); Red Cell Distribution Width 13.8 % (11.5-14.5); White Blood Count 7.6 K/mm3 (4.5-10.0)
[2021-11-02 05:50] LABS: Anion Gap 5 mmol/L (8-16); Blood Urea Nitrogen 10 mg/dL (7-17); Calcium 8.3 mg/dL (8.4-10.2); Carbon Dioxide 24 mmol/L (22-30); Chloride 109 mmol/L (98-107); Estimated CRCL calculation 65 ml/min; Estimated Glomerular Filt Rate > 60; Glucose 112 mg/dL (65-110); Potassium 3.5 mmol/L (3.4-5.0); Sodium 138 mmol/L (137-145)
[2021-11-02 05:59] VITALS: BP 146/63; PULSE 71; RESP 18; TEMP 36.4; O2SAT 94
[2021-11-02] MEDS: GABAPENTIN 300 MG CAPSULE 900 MG PO (06:06)
[2021-11-02] MEDS: LEVOTHYROXINE SODIUM 50 MCG TABLET PO (06:07)
[2021-11-02] MEDS: estradioL 0.5 MG TABLET PO (08:30)
[2021-11-02] MEDS: ATORVASTATIN 20 MG TABLET PO (08:30)
[2021-11-02] MEDS: ENOXAPARIN 40 MG/0.4 ML SYRINGE SUB-Q (08:30)
[2021-11-02] MEDS: PANTOPRAZOLE 40 MG TABLET PO (08:31)
[2021-11-02] MEDS: LORATADINE 10 MG TABLET PO (08:31)
[2021-11-02 08:33] VITALS: PULSE 78
[2021-11-02] MEDS: atenoloL 12.5 MG TABLET PO (08:33)
--- NOTE | 2021-11-02 10:19 | PM.DS ---
DS: Admitting Diagnosis Discharge Date November 02, 2021 Admitting Diagnosis Acute cholecystitis DS: Discharge Diagnosis Discharge Diagnosis (1) Abdominal pain, RUQ: Code(s): R10.11 - Right upper quadrant pain Status: Acute Assessment and Plan: Status post cholecystectomy. Doing okay. Tolerating diet. Okay for discharge. Patient has pain medicine prescription already at home. (2) Spinal stenosis, cervical region: Code(s): M48.02 - Spinal stenosis, cervical region Status: Acute Assessment and Plan: Monitor (3) Pure hypercholesterolemia: Code(s): E78.00 - Pure hypercholesterolemia, unspecified Status: Acute Assessment and Plan: Monitor continue home meds when taking oral (4) Polyneuropathy, unspecified: Code(s): G62.9 - Polyneuropathy, unspecified Status: Acute Assessment and Plan: Monitor continue home meds when taking oral (5) Gastro-esophageal reflux disease without esophagitis: Code(s): K21.9 - Gastro-esophageal reflux disease without esophagitis Status: Acute (6) Essential (primary) hypertension: Code(s): I10 - Essential (primary) hypertension Status: Acute Assessment and Plan: Monitor and continue home meds when taking oral (7) Obesity (BMI 30.0-34.9): Code(s): E66.9 - Obesity, unspecified Status: Acute DS: Summary Hospital Course Hospital Course: See discharge plan and diagnosis Time Spent with Patient Time attestation: Total time spent providing and/or coordinating discharge services: Exam Narrative: General: alert and oriented Psych: appropriate mood nad affect Eyes: PERRLA Neck: Trachea midline, no new lesions Skin: no changes Lungs: CTA Cardiac: Normal S1,S2, no MGR ABD: soft, nd, nt, nbs Ext: no new lesions, no cce Vasc: Pulses intact DS: Data Data Completed and Pending Pending studies at discharge: Pending at discharge 10/31/21 18:02 Surgical [PTH] Routine 10/31/21 19:21 Surgical [PTH] Routine Labs on day of discharge: Labs from last 24 hours 11/02/21 11/02/21 05:18 05:18 WBC 7.6 RBC 3.96 L Hgb 11.7 L Hct 36.5 L MCV 92.2 D MCH 29.5 MCHC 32.1 RDW 13.8 Plt Count 144 L MPV 11.5 H Immature Gran % (Auto) 0.5 Neut % (Auto) 71.5 Lymph % (Auto) 20.7 Nuckolls % (Auto) 5.9 Eos % (Auto) 0.9 Baso % (Auto) 0.5 Lymph # (Auto) 1.57 [place]uckolls # (Auto) 0.5 Eos # (Auto) 0.1 Baso # (Auto) 0.0 Abs Immat Gran (auto) 0.04 H Absolute Neuts (auto) 5.4 Absolute Nucleated RBC 0.0 Nucleated RBC % 0.0 Sodium 138 Potassium 3.5 Chloride 109 H Carbon Dioxide 24 Anion Gap 5 L BUN 10 Creatinine 0.80 Estim Creat Clear Calc 65 Estimated GFR > 60 Glucose 112 H Calcium 8.3 L Discharge Plan Discharge Attending physician on discharge: Negro Kelley Consulting providers: Negro Kelley Discharging Clinician: Negro Kelley Patient Disposition: Home, Self-Care Activity: no preference Diet: as tolerated Patient Instructions: Antibiotic Form Stand Alone Forms: General Discharge Information Follow-up/Referrals: Sukumar Berg DO [Primary Care Provider] - Discharge Medications: Continued gabapentin 300 mg capsule 900 mg PO TID cetirizine 5 mg tablet 5 mg PO DAILY estradiol 0.5 mg tablet 0.5 mg PO DAILY Rx Instructions: PT TAKES 0.5MG EVERY DAY levofloxacin 500 mg tablet 500 mg PO DAILY 5 Days Qty: 5 0RF hydrocodone-acetaminophen 5-325 mg tablet 1 tablet PO Q6H PRN (Reason: pain) Qty: 7 0RF omeprazole 20 mg capsule,delayed release(DR/EC) 20 mg PO DAILY atenolol 25 mg tablet 12.5 mg PO DAILY Qty: 45 2RF atorvastatin 20 mg tablet 20 mg PO DAILY Qty: 90 1RF levothyroxine 50 mcg tablet 50 mcg PO DAILY Qty: 90 1RF Date of admission: 11/01/21 14:36 Primary Care Provider: Lorenzo Berg
[2021-11-02] MEDS: HYDROcodone/acetaminophen (*CRX) 5-325 MG TABLET 1 TAB PO (12:25)
== END 2021-11-02 12:45 | disposition home or self-care (01) ==
LOC: ANHED 06:34 → ANH3MED 15:13
PROVIDERS: Surgery; Admitting Provider Internal Medicine; Emergency Provider Emergency Medicine; PCP Internal Medicine; Visit Provider Chiropractor
PROC: 0FT44ZZ Resection of Gallbladder, Percutaneous Endoscopic Approach (ICD-10-PCS; CPT 47562; principal; 2021-10-31 19:00)
DX: K80.10 Calculus of gallbladder with chronic cholecystitis without obstruction (principal); K82.8 Other specified diseases of gallbladder; K42.9 Umbilical hernia without obstruction or gangrene; M48.02 Spinal stenosis, cervical region; E78.00 Pure hypercholesterolemia, unspecified; G62.9 Polyneuropathy, unspecified; K21.9 Gastro-esophageal reflux disease without esophagitis; I10 Essential (primary) hypertension; E66.9 Obesity, unspecified; Z68.31 Body mass index [BMI] 31.0-31.9, adult; F32.A Depression, unspecified; E03.9 Hypothyroidism, unspecified; Z20.822 Contact with and (suspected) exposure to COVID-19; Z80.1 Family history of malignant neoplasm of trachea, bronchus and lung; Z79.82 Long term (current) use of aspirin; Z79.891 Long term (current) use of opiate analgesic; Z79.899 Other long term (current) drug therapy
CPT/HCPCS: 47562; 36415; 78227; 80048; 80053; 83690; 85025; 85027; 86850; 86900; 86901; 88302; 88304; 93005; 96365; 96375; 96376; 99285; A9270; A9537; C1713; C9803; G0378; J0461; J1100; J1650; J1956; J2250; J2270; J2405; J2704; J2805; J3010; J7030; J7120; Q9966; U0003; U0005

== ENCOUNTER 2021-11-25 12:57 | Outpatient (CLI) | payer OTHER, SELFPAY ==
[2021-11-28 23:25] LABS: H pylori Ag Stool Not Detected (Not Detected)
== END 2021-11-25 12:58 | disposition home or self-care (01) ==
PROVIDERS: PCP Internal Medicine; Visit Provider Surgery
DX: R10.11 Right upper quadrant pain (principal)
CPT/HCPCS: 87338

== ENCOUNTER → 2022-07-08 11:38 | Outpatient (CLI) | payer OTHER, SELFPAY ==
--- NOTE | ~2022-07-08 | XR_ITS ---
Cervical Spine: AP, lateral, oblique, open-mouth views Clinical History: Cervicalgia COMPARISON: 06/27/2013 Findings: The normal lordotic curve is maintained. No acute fracture or subluxation identified. There is orthopedic hardware or fusion along the spinous processes of the C4, C5, and C6 levels. There is advanced degenerative disc narrowing at C5-C6 and C6-C7. Pre-vertebral soft tissues are unremarkable. Impression: Posterior fusion hardware at the C4-C6 levels. Correlate with surgical history. Degenerative disc disease at C5-C6 and C6-C7. Reviewed, dictated and finalized at location . Impression: Posterior fusion hardware at the C4-C6 levels. Correlate with surgical history. Degenerative disc disease at C5-C6 and C6-C7.
--- NOTE | ~2022-07-08 | XR_ITS ---
XR elbow RT min 3V DATE: 07/08/2022 12:54 INDICATION: Right elbow pain TECHNIQUE: 4 views COMPARISON: 07/01/2021 right elbow FINDINGS: No fracture or dislocation or joint effusion. No periosteal reaction or bone destruction. IMPRESSION: Negative Reviewed, dictated and finalized at location B. IMPRESSION: Negative
== END ==
PROVIDERS: PCP Internal Medicine; Visit Provider Physician Assistant
DX: M25.521 Pain in right elbow (principal); Z98.1 Arthrodesis status; M50.323 Other cervical disc degeneration at C6-C7 level
CPT/HCPCS: 72050; 73080

== ENCOUNTER 2025-04-17 13:17 | Outpatient (CLI) | payer OTHER, SELFPAY ==
--- NOTE | ~2025-04-17 | XR_ITS ---
XR hip LT min 2V 04/17/2025 13:34 Indication: Left hip pain Procedure: 2 views left hip Comparison: No prior studies for comparison. Findings: No fracture, subluxation or dislocation. No soft tissue abnormality. No foreign bodies. Small loose body lateral to the greater trochanter. No significant joint space narrowing. Impression: 1: No significant bone or joint abnormality. Reviewed, dictated and finalized at location O. [employer]UREMENT MANAGER Impression: 1: No significant bone or joint abnormality.
== END 2025-04-17 13:18 | disposition home or self-care (01) ==
LOC: MICIMG 13:18
PROVIDERS: PCP Internal Medicine; Visit Provider Internal Medicine
DX: M25.552 Pain in left hip (principal)
CPT/HCPCS: 73502